=== PATIENT | male | born 1975 | race African-American/Black ===

== ENCOUNTER 2017-05-23 18:25 | Emergency (ER) | payer MEDICAID, OTHER, SELFPAY ==
[~2017-05-23] VITALS: Ht 200.7 cm; Wt 139.0 kg
[2017-05-23] MEDS ORDERED: BP MED (18:44)
[2017-05-23] MEDS ORDERED: ASPI-650 PO (18:44)
[2017-05-23] MEDS ORDERED: [UNRECOGNIZED DRUG - OTHER] (18:45)
[2017-05-23] MEDS ORDERED: IBUPROFEN 200 MG TABLET ONE (19:13)
[2017-05-23] MEDS ORDERED: IBUPROFEN 200 MG TABLET PO ONE (19:30)
[2017-05-23 19:43] LABS: ALBUMIN 3.7 g/dL (3.4-5.0); ANION GAP 9 mmol/L (5-15); CALCIUM 8.9 mg/dL (8.5-10.1); CHLORIDE 105 mmol/L (98-107); CREATININE 1.19 mg/dL (0.7-1.3)
[2017-05-23 19:46] LABS: TROPONIN I < 0.015 ng/mL (0.000-0.045)
[2017-05-23 19:56] VITALS: BP 138/77
[2017-05-23 19:56] LABS: MEAN CORPUSCULAR HEMOGLOBIN 29.7 pg (27.5-34.5); MEAN CORPUSCULAR HGB CONC 32.8 g/dL (33.2-36.2); MEAN CORPUSCULAR VOLUME 90.6 fL (81-97); MEAN PLATELET VOLUME 9.2 fL (7.4-10.4); PLATELET COUNT 204 x10^3/uL (130-400); RED BLOOD COUNT 4.48 x10^6/uL (4.38-5.82); RED CELL DISTRIBUTION WIDTH 13.6 % (9.4-14.8)
[2017-05-23 19:57] LABS: BASOPHILS # (AUTO) 0.03 x10^3/uL (0-0.1); BASOPHILS % (AUTO) 0 % (0-1); EOSINOPHILS # (AUTO) 0.22 x10^3/uL (0-0.4); EOSINOPHILS % (AUTO) 3 % (1-7); LYMPHOCYTES # (AUTO) 2.02 x10^3/uL (1-3.4); LYMPHOCYTES % (AUTO) 24 % (22-44); MD SCAN; MONOCYTES # (AUTO) 0.89 x10^3/uL (0.2-0.8); MONOCYTES % (AUTO) 10 % (2-9); NEUTROPHILS # (AUTO) 5.36 x10^3/uL (1.8-6.8); NEUTROPHILS % (AUTO) 63 % (42-75)
== END 2017-05-23 21:24 | disposition home or self-care (01) ==
LOC: ED 21:11
DX: R07.89 Other chest pain (principal); I10 Essential (primary) hypertension; E78.5 Hyperlipidemia, unspecified
CPT/HCPCS: 36415; 71045; 80048; 82040; 84484; 85025; 93005; 99285

== ENCOUNTER → 2017-06-27 | Outpatient (CLI) | payer OTHER ==
[~2017-06-27] MED LIST: ASPI-650 PO; BP MED; [UNRECOGNIZED DRUG - OTHER]
== END | disposition home or self-care (01) ==
LOC: CVU 13:58
PROVIDERS: ATTEND Internal Medicine Cardiovascular Disease
DX: I35.1 Nonrheumatic aortic (valve) insufficiency (principal); I10 Essential (primary) hypertension; E78.5 Hyperlipidemia, unspecified; Z87.891 Personal history of nicotine dependence
CPT/HCPCS: 93306